=== PATIENT | female | born 1940 | race Caucasian/White ===

== ENCOUNTER → 2025-02-07 09:55 | Outpatient (REF) | payer MEDICARE, OTHER, SELFPAY | LOC: RST 09:55 | PROVIDERS: ATTENDING PHYSICIAN Otolaryngology; FAMILY PHYSICIAN Internal Medicine; REFERRING PHYSICIAN Otolaryngology | DX: R13.14 Dysphagia, pharyngoesophageal phase (principal); R63.30 Feeding difficulties, unspecified | CPT/HCPCS: 74230; 92611 ==